=== PATIENT | male | born 1995 | race Caucasian/White ===

== ENCOUNTER 2017-03-28 14:48 | Emergency (ER) | payer OTHER ==
[2017-03-28] MEDS ORDERED: NS 1,000 ML IV ONE (15:41)
--- NOTE | 2017-03-28 15:49 | EDPHY ---
H & P Smoking Status: Never smoked Time Seen by Provider: 03/28/17 15:22 HPI/ROS: CHIEF COMPLAINT: Fever, abdominal pain, flank pain HISTORY OF PRESENT ILLNESS: 22-year-old male presents to the emergency department by private vehicle with fever that began yesterday. He he started having some right upper quadrant abdominal pain and right flank pain this morning. He has vomited several times. No diarrhea. He denies chest pain, however he complains of severe pain in his right abdomen and right flank with deep breathing. No reported trauma. No diarrhea. No known ill contacts. No calf pain or swelling. He has a very mild cough. He took Motrin at 3 o'clock this morning. He has never had pain like this in the past. No urinary symptoms. He did receive a flu shot today. REVIEW OF SYSTEMS: Constitutional: Fever, chills with a T-max of 101 degrees Eyes: No double or blurry vision. ENT: No sore throat. Respiratory: shortness of breath. Very occasional cough. Cardiac: No chest pain. Gastrointestinal: Abdominal pain as above. No vomiting or diarrhea Genitourinary: No dysuria. Musculoskeletal: Low back pain. No neck pain. Skin: No rashes. Neurological: No headache. (Ekaterina Morris) Past Medical/Surgical History: Negative (Ekaterina Morris) Social History: [employer] student (Ekaterina Morris) Physical Exam: General Appearance: Alert, no distress. Oral temp upon my examination is 38.0. 96% on room air. No respiratory distress. Eyes: Pupils equal and round. Extraocular motions are all intact. ENT: Mouth: Mucous membranes moist. Respiratory: No wheezing, rhonchi, or rales, lungs are clear to auscultation. Cardiovascular: Regular rate and rhythm. Gastrointestinal: Abdomen is soft. Mild tenderness with palpation in the right upper quadrant. There is no masses, rebound or guarding noted. No CVA tenderness bilaterally. Neurological: Alert and oriented x 3, cranial nerves II through XII grossly intact Skin: Warm and dry, no rashes. Musculoskeletal: Nontender to palpate along the cervical, thoracic or lumbar spine. Neck is supple. Extremities: Full range of motion and no peripheral edema. Psychiatric: Patient is oriented X 3, there is no agitation. (Ekaterina Morris) Constitutional: Initial Vital Signs Temperature (C) 36.8 C 03/28/17 14:55 Heart Rate 108 H 03/28/17 14:55 Respiratory Rate 18 03/28/17 14:55 Blood Pressure 132/76 H 03/28/17 14:55 O2 Sat (%) 95 03/28/17 14:55 O2 Delivery Mode Room Air Allergies/Adverse Reactions: No Known Allergies Allergy (Unverified 03/28/17 14:55) Home Medications: Medication Instructions Recorded Azithromycin [Zithromax tab 250 mg] 250 mg PO DAILY #4 tab 03/28/17 Medical Decision Making - Diagnostics Imaging: I viewed and interpreted images myself ED Course/Re-evaluation: The case was discussed with Dr. Medhat Lovell, secondary supervising physician, who also evaluated the patient and agrees with treatment and plan. Laboratory studies reveal elevated white blood cell count. Chemistries are within normal limits. Patient unable to produce urine specimen presently. Chest x-ray reveals right middle lobe pneumonia. D-dimer was negative. I do not think this patient has pulmonary embolism. Venous lactate is normal at 1.5. Patient received IV normal saline, IV Zofran, he was given 500 mg of IV azithromycin. Patient was also given 1000 mg of Tylenol p. o.. Patient is comfortable being discharged home. He is not hypoxic. He will be brought back to the emergency department if he develops recurring vomiting or if he feels worse in any way. (Ekaterina Morris) Differential Diagnosis: Including but not limited to pneumonia, urinary tract infection, pyelonephritis , acute appendicitis, viral upper respiratory infection, influenza (Ekaterina Morris) Other Provider: PHYSICIAN DOCUMENTATION: The patient was evaluated and managed by the Physician Milieu Coordinator and myself. I have reviewed the chart and agree with the findings and plan of care as documented. In addition, I examined the patient myself at 1720. History confirmed as currently fever. Physical findings as follows: No right upper quadrant abdominal tenderness to palpation. Discussed diagnosis, treatment plan, precautions of when to return including but not limited to feeling worse, shortness of breath, vomiting. He will follow up with his primary care physician in [place] this week. I am the secondary supervising physician. (Medhat Lovell) - Data Points Laboratory Results: Laboratory Results 03/28/17 15:30 03/28/17 15:30 Medications Given: Discontinued Medications Acetaminophen (Tylenol) 1,000 mg PO EDNOW ONE Stop: 03/28/17 16:43 Last Admin: 03/28/17 16:49 Dose: 1,000 mg Sodium Chloride (Ns) 1,000 mls @ 0 mls/hr IV ONCE ONE PRN Reason: Wide Open Stop: 03/28/17 15:42 Last Admin: 03/28/17 15:48 Dose: 1,000 mls Azithromycin 500 mg/ Dextrose 255 mls @ 255 mls/hr IV EDNOW ONE PRN Reason: Protocol Stop: 03/28/17 17:40 Last Admin: 03/28/17 17:05 Dose: 255 mls Departure - Departure Disposition: Home, Routine, Self-Care Clinical Impression: Right middle lobe pneumonia Qualifiers: Pneumonia type: due to unspecified organism Qualified Code(s): J18.1 - Lobar pneumonia, unspecified organism Fever Qualifiers: Fever type: unspecified Qualified Code(s): R50.9 - Fever, unspecified Condition: Good Instructions: Fever in Adults (ED), Community Acquired Pneumonia (ED) Additional Instructions: Adult Pain & Fever Control: We recommend Acetaminophen (Tylenol) and Ibuprofen (Motrin,Advil) for pain and fever control. When fever is high or pain severe, both drugs can be used at the same time, but at different intervals. Please note the time differences. Your dose is: Acetaminophen 1000mg every 4 to 6 hours Ibuprofen 600mg every 8 hours with food Note: do not take Acetaminophen with Hydrocodone (Vicodin, Lortab) or Oycodone (Percocet). These medications also contain Acetaminophen. No more than 3000mg of Acetaminophen should be taken in 24 hours (for an adult). Your given 500 mg of azithromycin IV. You should continue azithromycin 250 mg daily for the next 4 days. Return to the emergency department if you develop recurring vomiting, if you feel short of breath, or if you feel worse in any way. Referrals: EVONNE BROWN MD [Other] - 2-3 days without fail Stand Alone Forms: School Excuse Prescriptions: Azithromycin [Zithromax tab 250 mg] 250 mg PO DAILY #4 tab
[2017-03-28 15:58] LABS: % IMMATURE GRANULYOCYTES 0.7 % (0.0-1.1); ABSOLUTE IMMATURE GRANULOCYTES 0.09 10^3/uL (0.00-0.10); ADD DIFF? NO; ADD MORPH? NO; ADD SCAN? NO; ATYPICAL LYMPHOCYTE FLAG 0 (0-99); FRAGMENT RBC FLAG 0 (0-99); HEMOGLOBIN 15.6 g/dL (13.7-17.5); LEFT SHIFT FLG 30 (0-99); LIPEMIA HEMOLYSIS FLAG 90 (0-99); MEAN CELL HEMOGLOBIN 32.6 pg (27.9-34.1); MEAN CELL HEMOGLOBIN CONCENTR. 37.1 g/dL (32.4-36.7); MEAN CELL VOLUME 87.9 fL (81.5-99.8); MEAN PLATELET VOLUME 10.1 fL (8.7-11.7); PLATELET CLUMPS FLAG 0 (0-99); PLATELET COUNT 162 10^3/uL (150-400); RED BLOOD CELL COUNT 4.78 10^6/uL (4.40-6.38); RED CELL DISTRIBUTION WIDTH 11.4 % (11.5-15.2)
[2017-03-28 16:01] LABS: ANION GAP 15 mEq/L (8-16); CALCIUM 9.6 mg/dL (8.5-10.4); CARBON DIOXIDE 22 mEq/l (22-31); CHLORIDE 101 mEq/L (97-110); CREATININE 1.2 mg/dL (0.7-1.3); GLOMERULAR FILTRATION RATE > 60; GLUCOSE 107 mg/dL (70-100); POTASSIUM 3.4 mEq/L (3.5-5.2); SODIUM 138 mEq/L (134-144)
[2017-03-28] MEDS ORDERED: AZITHROMYCIN IV 500 MG in D5W 250 ML IV ONE (16:41)
[2017-03-28] MEDS ORDERED: ACETAMINOPHEN 500 MG TAB PO ONE (16:42)
[2017-03-28 16:50] VITALS: O2SAT 96
[2017-03-28 17:18] LABS: COLOR YELLOW; LEUKOCYTE ESTERASE,URINE NEGATIVE (NEGATIVE); NITRITE,URINE NEGATIVE (NEGATIVE)
[2017-03-28 18:27] VITALS: BP 110/72; PULSE 94; RESP 16; TEMP 99.9
== END 2017-03-28 18:26 | disposition home or self-care (01) ==
DX: J18.1 Lobar pneumonia, unspecified organism (principal)
CPT/HCPCS: 96365; J0456